=== PATIENT | female | born 1970 | race Caucasian/White ===

== ENCOUNTER 2022-02-15 07:30 | Day surgery (SDC) | payer OTHER ==
[2022-02-12 10:34] LABS: Absolute Lymphocytes (CBC) 2.2 K/uL (0.7-4.9); Hematocrit 35.3 % (36.0-45.0); MPV 7.8 fL (7.6-11.3); RBC Red Blood Cell Count 3.73 M/uL (3.86-4.86)
--- NOTE | 2022-02-12 11:18 | RAD REPORT ---
EXAM DESCRIPTION: RAD - Chest Pa And Lat (2 Views) - 02/12/2022 10:22 am CLINICAL HISTORY: pre op pending gallbladder removal COMPARISON: Two view chest 03/31/2021 TECHNIQUE: Frontal and lateral views of the chest were obtained. FINDINGS: The lungs are clear. Interstitial pattern matches comparison. No robert mass or lymphadenop athy seen. Heart size is normal and central vasculature is within normal limits. No pleural effusion or pneumothorax seen. No acute bony finding noted. No aortic abnormality. IMPRESSION: No acute cardiopulmonary process. No significant change from comparison study.
[2022-02-15] MEDS ORDERED: BUPIVACAINE 0.5% PF 10 ML VIAL ONE (07:57)
[2022-02-15] MEDS ORDERED: BUPIVACAINE 0.5% PF 10 ML VIAL SQ ONE ×2 (08:01→08:45)
[2022-02-15] MEDS ORDERED: CEFOXITIN SODIUM 1 GM/VIAL ONE (08:05)
[2022-02-15] MEDS ORDERED: NA CHLORIDE 0.9% 50 ML ONE (08:05)
[2022-02-15] MEDS ORDERED: Ringers Lactate 1,000 ML IV ONE (08:05)
[2022-02-15] MEDS ORDERED: propofoL 200 MG/20 ML VIAL IV ONE (08:15)
[2022-02-15] MEDS ORDERED: KETOROLAC 30 MG/ML INJ ONE (08:15)
[2022-02-15] MEDS ORDERED: FENTANYL CITR 100 MCG/2 ML ONE (08:15)
[2022-02-15] MEDS ORDERED: dexAMETHasone 10 MG/ML VIAL ONE (08:15)
[2022-02-15] MEDS ORDERED: MIDAZOLAM HCL 2 MG/2 ML INJ ONE (08:15)
[2022-02-15] MEDS ORDERED: ONDANSETRON 4 MG/2 ML VIAL ONE (08:16)
[2022-02-15] MEDS ORDERED: LIDOCAINE 1% MPF 30 ML VIAL ONE (08:16)
[2022-02-15] MEDS ORDERED: ROCURONIUM 50 MG/5 ML VIAL IV ONE (08:32)
[2022-02-15] MEDS ORDERED: NEOSTIGMINE 1 MG/ML -5 ML ONE (09:12)
[2022-02-15] MEDS ORDERED: GLYCOPYRROLATE 0.2 MG/ML SYR ONE (09:12)
--- NOTE | 2022-02-15 09:26 | P.OP ---
Date of Service: 02/15/22 Preop diagnosis: Biliary colic, gallbladder polyp Postop diagnosis: Same Procedure performed: Laparoscopic cholecystectomy Surgeon: Terry Ayala MD Internet Marketing Executive: Marion CARDOSO Estimated blood loss: Minimal Specimen: Gallbladder Findings: As above Anesthesia: General Complications: None Drains: None Fluids and blood products: Nonapplicable Disposition: Recovery room Operative note: Patient brought to the OR and placed in the supine position. General anesthesia begun and patient prepped and draped in the usual sterile fashion. Marcaine 0.5% infiltrated locally. 15 blade used to make a 1 cm incision infraumbilically. Subcutaneous tissue divided and fascia identified and divided. #1 Vicryl stay suture placed. Peritoneal cavity entered with sharp and blunt dissection. 3 5 mm meter trocar placed in the in the abdomen. 1 placed just to the right of midline in the epigastric region. 2 placed in the right subcostal region. Laparoscopy revealed chronic inflammation of the gallbladder. Fundus of the gallbladder identified and retracted superiorly. Infundibulum identified and retracted inferolaterally. Cystic duct and cystic artery clearly identified with blunt dissection. Clips placed and both structures divided. Cautery used to remove the gallbladder from the liver bed. Bleeding on the liver bed controlled with cautery. Gallbladder retrieved through the umbilicus via Endo Catch bag. Right upper quadrant irrigated and effluent clear and no evidence of bleeding or bile leakage appreciated. All trochars removed under direct vision. Stay sutures tied to each other to reapproximate the fascial defect. Subcutaneous wounds irrigated and bleeding controlled with cautery. 3-0 chromic used to reapproximate subcutaneous tissue and closed skin. Sterile dressing applied and patient awakened. Patient taken to recovery room in good general condition. CC: Dr. Brush's office
[2022-02-15] MEDS ORDERED: HYDROCODONE/APAP 7.5/325 MG TAB PO PRN (09:29)
[2022-02-15 10:12] VITALS: BP 101/68; TEMP 96.7; O2SAT 99
[2022-02-15] MEDS ORDERED: HYDROCODONE/APAP 7.5/325 MG TAB ONE (10:36)
== END 2022-02-15 10:45 | disposition home or self-care (01) ==
LOC: OR 07:30
PROVIDERS: ATTEND Surgery
PROC: 0FT44ZZ Resection of Gallbladder, Percutaneous Endoscopic Approach (ICD-10-PCS; principal; 2022-02-15 08:30)
DX: K80.10 Calculus of gallbladder with chronic cholecystitis without obstruction (principal); K82.4 Cholesterolosis of gallbladder; K80.50 Calculus of bile duct without cholangitis or cholecystitis without obstruction
CPT/HCPCS: 93005; 85025; 80048; 36415; 81025; 88304; 71046; 47562; J2704; J2250; J3010; J1100; J2710; J7120; J0694; J2405